=== PATIENT | female | born 1995 | race Two or more races ===

== ENCOUNTER 2022-03-26 08:43 | Emergency (ER) | payer MEDICAID, OTHER ==
[~2022-03-26] VITALS: Ht 160 cm; Wt 83.0 kg
[2022-03-26 09:54] LABS: Urine Bacteria NONE SEEN /hpf (None Seen); Urine Blood Negative /uL (Negative); Urine Mucus FEW (None Seen); Urine Specific Gravity 1.028 (1.001-1.035); Urine WBC 15 /hpf (0 - 5)
[2022-03-26 10:17] LABS: Basophils # (auto) 0.2 10 ^3/uL (0-0.2); Basophils % (auto) 3.7 % (0.0-2.0); Eosinophils # (auto) 0.1 10 ^3/uL (0-0.8); Eosinophils % (auto) 2.8 % (0.0-7.0); Hematocrit 41.3 % (36.0-46.0); Hemoglobin 14.5 g/dL (12.2-16.2); Lymphocytes # (auto) 1.8 10 ^3/uL (0.4-5.4); Lymphocytes % (auto) 33.7 % (10.0-50.0); Mean Corpuscular Hgb Conc. 35.1 g/dL (32.0-36.0); Mean Corpuscular Volume 91.4 fL (80.0-100.0); Monocytes # (auto) 0.2 10 ^3/uL (0-1.3); Monocytes % (auto) 3.9 % (0.0-12.0); Neutrophils % (auto) 55.9 % (37.0-80.0); Nucleated Red Blood Cells % 0.1 %; Red Blood Cells 4.52 10^6/uL (4.0-5.20); Red Cell Distribution Width 12.5 % (11.8-14.3); White Blood Cell 5.3 10^3/uL (4.4-10.8)
[2022-03-26 10:36] LABS: Albumin 3.6 g/dL (3.4-5.0); Calcium 8.6 mg/dL (8.5-10.1); Magnesium 2.4 mg/dL (1.6-2.6); Potassium 3.8 mmol/L (3.5-5.1)
[2022-03-26 10:40] LABS: BUN/Creatinine Ratio 16.7; Bilirubin, Total 0.3 mg/dL (0.2-1.0); Total Protein 7.1 g/dL (6.4-8.2)
[2022-03-26] MEDS ORDERED: predniSONE 20 MG TAB PO ONE (13:45)
[2022-03-26] MEDS ORDERED: PRED20TA2 PO (14:03)
[2022-03-26] MEDS ORDERED: VALA1TAB34 PO (14:03)
[2022-03-26 14:45] VITALS: BP 116/71
== END 2022-03-26 14:45 | disposition home or self-care (01) ==
LOC: ER 08:43
DX: G51.0 Bell's palsy (principal)
CPT/HCPCS: 36415; 70450; 80053; 81001; 81025; 83735; 85025; 93005; 99285; J7512

== ENCOUNTER 2023-10-10 17:44 | Emergency (ER) | payer MEDICAID ==
[~2023-10-10] VITALS: Ht 160 cm; Wt 77.2 kg
[~2023-10-10 17:44] MED LIST: PRED20TA2 PO; VALA1TAB34 PO
[2023-10-10 17:50] VITALS: BP 138/81; PULSE 104; RESP 16; O2SAT 97
== END 2023-10-11 01:30 | disposition left against medical advice (07) ==
LOC: EDBD 17:44 → ER 17:44
DX: M79.605 Pain in left leg (principal); Z53.21 Procedure and treatment not carried out due to patient leaving prior to being seen by health care provider; V89.2XXA Person injured in unspecified motor-vehicle accident, traffic, initial encounter; Y93.I9 Activity, other involving external motion; Y92.89 Other specified places as the place of occurrence of the external cause; Y99.8 Other external cause status

== ENCOUNTER 2025-02-17 11:56 | Inpatient (IN) | payer MEDICAID ==
[~2025-02-17] VITALS: Ht 162.6 cm; Wt 83.0 kg
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
[2025-02-17 12:33] LABS: Urine Bacteria None Seen /hpf (None Seen)
[2025-02-17 12:44] LABS: Basophils # (auto) 0 10 ^3/uL (0-0.2); Basophils % (auto) 0.5 % (0.0-2.0); Eosinophils # (auto) 0.1 10 ^3/uL (0-0.8); Eosinophils % (auto) 0.7 % (0.0-7.0); Hematocrit 46.3 % (36.0-46.0); Hemoglobin 15.4 g/dL (12.2-16.2); Lymphocytes # (auto) 1.2 10 ^3/uL (0.4-5.4); Lymphocytes % (auto) 14.6 % (10.0-50.0); Mean Corpuscular Hemoglobin 28.3 pg (28.0-32.0); Mean Corpuscular Hgb Conc. 33.4 g/dL (32.0-36.0); Mean Corpuscular Volume 84.8 fL (80.0-100.0); Monocytes # (auto) 0.3 10 ^3/uL (0-1.3); Neutrophils # (auto) 6.7 10 ^3/uL (1.6-8.6); Neutrophils % (auto) 80.2 % (37.0-80.0); Nucleated Red Blood Cells % 0.1 %; Platelet Count (auto) 223 10^3/uL (140-450); Red Blood Cells 5.45 10^6/uL (4.0-5.20); Red Cell Distribution Width 15.8 % (11.8-14.3); White Blood Cell 8.3 10^3/uL (4.4-10.8)
[2025-02-17 12:56] LABS: Urine Blood 1+ /uL (Negative); Urine Clarity Ex.Turbid (Clear); Urine Color Light-Orange (Yellow); Urine Mucus MODERATE (None Seen); Urine Protein, UAD 1+ (Negative); Urine Squamous Epithelial Cell MOD /hpf (<5); Urine Urobilinogen Normal (Negative); Urine WBC 62 /HPF (0-5); Urine WBC Clumps PRESENT /hpf (None Seen); Urine pH 5.5 (5.0-9.0)
[2025-02-17 13:03] LABS: Alanine Aminotransferase 23 U/L (7-40); Albumin 4.7 g/dL (3.2-4.8); Alkaline Phosphatase 73 U/L (46-116); Anion Gap 6 (5-15); Aspartate Aminotransferase 17 U/L (13-40); BUN/Creatinine Ratio 17.1 (10.0-20.0); Bilirubin, Total 0.5 mg/dL (0.2-1.0); Blood Urea Nitrogen 14 mg/dL (9-23); Calcium 9.8 mg/dL (8.7-10.4); Carbon Dioxide 27 mmol/L (20-31); Chloride 107 mmol/L (98-107); Glucose 99 mg/dL (74-106); Lipase 40 U/L (12-53); Potassium 4.4 mmol/L (3.5-5.1); Sodium 140 mmol/L (136-145); Total Protein 7.6 g/dL (5.7-8.2)
--- NOTE | 2025-02-17 13:40 | DVH ---
CT CT AB PEL WO CON-NO ORAL OR IV INDICATION: r flank pain : 29 old Female r flank pain EXAM DATE: 02/17/2025 12:52 PM COMPARISON: None RADIATION DOSE: CTDIvol: 8.76 mGy, DLP: 526.27 mGy*cm PROCEDURE: Helical CT images were obtained of the abdomen and pelvis without IV contrast Sagittal and coronal reconstructions are provided. ORAL CONTRAST: None. ADDITIONAL IMAGES / REFORMATS: None All C T scans at this medical facility are performed using dose modulation techniques as appropriate to a p erformed exam including the following: Automated exposure control was utilized; adjustment of the MA and/or KV according to patient size; and use of iterative reconstruction technique. FINDINGS: LUNG BASE: Normal. LIVER: Normal. GALLBLADDER AND BILIARY TREE: Cholecystectomy clips. No intra- or extrahepatic biliary ductal dilati on. PANCREAS: Normal. SPLEEN: Normal. BOWEL: Normal. Normal appendix. ADRENALS: Normal. KIDNEYS AND URETER: 4mm partially obstructive right kidney stone in the distal ureter with mild right hydro ureteronephrosis. BLADDER: Normal. REPRODUCTIVE ORGANS: An IUD is seen in the uterus. LYMPH NODES:No lymphadenopathy. PERITONEUM: No ascites or free air. No other fluid collection. VESSELS: Scattered atherosclerotic calcifications are noted. RETROPERITONEUM: Normal. ABDOMINAL WALL: Post surgical scarring is seen in the anterior abdominal wall. BONES: Scattered osseous degenerative changes are noted. IMPRESSION: 4mm partially obstructive right kidney stone in the distal ureter with mild right hydro ureteronephro sis.
[2025-02-17] MEDS: LACTATED RINGER'S 1,000 ML IV ONE (15:10)
[2025-02-17] MEDS: SODIUM CHLORIDE 0.9% 1,000 ML IV ONE (15:18)
[2025-02-17] MEDS ORDERED: DOCUSATE SOD 100 MG CAP PO PRN (15:45)
--- NOTE | 2025-02-17 15:55 | DVHHP2 ---
Admitting Diagnosis: Flank pain History of Present Illness 29 year old female presents to the ED with chief complaint of flank pain. Patient reports that she has been experiencing right sided flank pain since this morning, visiting urgent care today. Patient relays that she was advised to come to the ED for a CT scan of her abdomen. Per referral note, patient has positive blood in urine test, given 30mg of Toradol IM prior to ED arrival. Patient states she has had some difficulty urinating recently, but still feels like she needs to go. Patient denies any dysuria, hematuria, N/V/D, abdominal pain, or fever. PAST MEDICAL HISTORY: Gallstones Surgical History: Denies all surgeries WET PROCESS HEAD MILLER History: No Pertinent WET PROCESS HEAD MILLER History Family History Family History: Reviewed,noncontributory to illness Social History Smoker: Non-Smoker Alcohol: Denies ETOH Use Drugs: Denies Drug Use Lives In: Home Allergies: Coded Allergies: NO KNOWN ALLERGIES (Unverified , 10/10/23) Home Meds Active Scripts Prednisone (Prednisone) 20 Mg Tab, 40 MG PO DAILY for 5 Days, #10 MG Prov:SHADI ASTORGA DO 03/26/22 Valacyclovir HCl (Valacyclovir HCl) 1 Gm Tab, 1 GM PO TID for 7 Days, #21 TAB Prov:SHADI ASTORGA DO 03/26/22 Current Medications Current Medications Medications (Trade) Dose Ordered Sig/Nickie Route PRN Reason Start Time Stop Time Status Last Admin Tamsulosin HCl (Flomax) 0.4 mg DAILY PO 02/17/25 15:45 UNV Docusate Sodium (Colace Capsule) 100 mg BIDPRN PRN PO FOR CONSTIPATION 02/17/25 15:45 UNV Acetaminophen (Tylenol Tablet) 650 mg Q6HP PRN PO PAIN SCALE 1-3 OR TEMP>100.4 02/17/25 15:45 UNV Acetaminophen/ Hydrocodone Bitart ([place] 5/325MG Tab) 1 tab Q4HP PRN PO MODERATE PAIN (4-6 PAIN SCALE) 02/17/25 15:45 UNV Hydromorphone HCl (Dilaudid Injection) 0.5 mg Q4HP PRN IV SEVERE PAIN (7-10 PAIN SCALE) 02/17/25 15:45 UNV Ondansetron HCl (Zofran) 4 mg Q4HP PRN IV NAUSEA / VOMITING 02/17/25 15:45 UNV Ceftriaxone Sodium 50 ml @ 100 mls/hr DAILY IV 02/17/25 16:00 UNV Vital Signs Vital Signs Date Time Temp Pulse Resp B/P (MAP) Pulse Ox O2 Delivery O2 Flow Rate FiO2 02/17/25 12:12 99.0 77 18 127/81 (96) 99 99.0 Physical Exam Generally-29 years old woman, well nourished well developed. Mild distress HEENT-atraumatic, normocephalic Heart-regular rate and rhythm Lungs clear to auscultate bilaterally Abdomen soft nontender nondistended Musculoskeletal-no edema cyanosis Neuro-AO x3, no focal deficits Results Labs Test 02/17/25 12:33 02/17/25 12:18 Range/Units Urine Color Light-orange Yellow Urine Clarity Ex.turbid Clear Urine pH 5.5 5.0-9.0 Urine Specific [place] 1.040 H 1.001-1.035 Urine Protein 1+ H Negative Urine Ketones Negative Negative Urine Blood 1+ H Negative /uL Urine Nitrite Negative Negative Urine Bilirubin Negative Negative Urine Urobilinogen Normal Negative mg/dL Urine Leukocyte Esterase 1+ Negative /uL Urine RBC 10 0 - 4 /hpf Urine WBC Clumps Present None Seen /hpf Urine Microscopic WBC 62 H 0-5 /HPF Urine Squamous Epithelial Cells Mod <5 /hpf Urine Bacteria None seen None Seen /hpf Urine Mucus Moderate None Seen Urine Glucose Normal Normal mg/dL Urine Test Negative Negative White Blood Count 8.3 4.4-10.8 10^3/uL Red Blood Count 5.45 H 4.0-5.20 10^6/uL Hemoglobin 15.4 12.2-16.2 g/dL Hematocrit 46.3 H 36.0-46.0 % Mean Corpuscular Volume 84.8 80.0-100.0 fL Mean Corpuscular Hemoglobin 28.3 28.0-32.0 pg Mean Corpuscular Hemoglobin Concent 33.4 32.0-36.0 g/dL Red Cell Distribution Width 15.8 H 11.8-14.3 % Platelet Count 223 140-450 10^3/uL Mean Platelet Volume 9.5 6.9-10.8 fL Neutrophils (%) (Auto) 80.2 H 37.0-80.0 % Lymphocytes (%) (Auto) 14.6 10.0-50.0 % Monocytes (%) (Auto) 4.0 0.0-12.0 % Eosinophils (%) (Auto) 0.7 0.0-7.0 % Basophils (%) (Auto) 0.5 0.0-2.0 % Neutrophils # (Auto) 6.7 1.6-8.6 10 ^3/uL Lymphocytes # (Auto) 1.2 0.4-5.4 10 ^3/uL Monocytes # (Auto) 0.3 0-1.3 10 ^3/uL Eosinophils # (Auto) 0.1 0-0.8 10 ^3/uL Basophils # (Auto) 0 0-0.2 10 ^3/uL Nucleated Red Blood Cells 0.1 % Sodium Level 140 136-145 mmol/L Potassium Level 4.4 3.5-5.1 mmol/L Chloride Level 107 98-107 mmol/L Carbon Dioxide Level 27 20-31 mmol/L Anion Gap 6 5-15 Blood Urea Nitrogen 14 9-23 mg/dL Creatinine 0.82 0.550-1.02 mg/dL Glomerular Filtration Rate Calc 98 >90 mL/min BUN/Creatinine Ratio 17.1 10.0-20.0 Serum Glucose 99 74-106 mg/dL Calcium Level 9.8 8.7-10.4 mg/dL Total Bilirubin 0.5 0.2-1.0 mg/dL Aspartate Amino Transferase (AST) 17 13-40 U/L Alanine Aminotransferase (ALT) 23 7-40 U/L Alkaline Phosphatase 73 46-116 U/L Total Protein 7.6 5.7-8.2 g/dL Albumin 4.7 3.2-4.8 g/dL Lipase 40 12-53 U/L Primary Diagnosis Right partial obstructive renal calculus with right hydronephrosis Plan CT abdomen and pelvis shows right renal calculus partial obstructive, right hydronephrosis Insert Mauro Pain control Antiemetic LR at 125 cc an hours Tamsulosin Urology consult Regular diet NPO after midnight for possible procedure if does not resolve Check INR Full code SCD for DVT prophylaxis No GI prophylaxis needed Plan discussed with: Patient Problems List: (1) Hydronephrosis, right (2) Right ureteral calculus Status: Acute (3) Intractable pain Status: Acute Date of Service: Feb 17, 2025 Billing Provider: NATHANIEL KYLE MD Common Visit Codes: [id number] INP/OBS CARE (MOD) NATHANIEL KYLE MD Feb 17, 2025 15:55
[2025-02-17 16:17] VITALS: PULSE 74; RESP 16; O2SAT 97
[2025-02-17 16:40] LABS: INR 1.01 (0.9-1.15); Prothrombin Time 10.7 sec (9.3-11.8)
[2025-02-17] MEDS: fentaNYL CITRATE 100 MCG/2 ML VL IV ONE ×2 (16:55→17:10)
[2025-02-17] MEDS: TAMSULOSIN HYDROCHLORIDE 0.4 MG CAP PO SCH (17:02)
[2025-02-17] MEDS: cefTRIAXone 1GM/50ML D5W 50 ML IV SCH (17:02)
[2025-02-17 17:26] VITALS: BP 125/76; PULSE 63; RESP 18; TEMP 98.2; O2SAT 98
[2025-02-17] MEDS ORDERED: IBUP-1455 PO (17:42)
[2025-02-17] MEDS: HYDROmorphone HCL 2 MG/ML VL/or syr IV PRN (18:17)
[2025-02-17 20:00] VITALS: PULSE 78; RESP 18; O2SAT 98
[2025-02-17] MEDS: ONDANSETRON HCL 4 MG/2 ML VIAL IV PRN (20:31)
[2025-02-17] MEDS: HYDROcodone-ACET 5/325MG TAB PO PRN (20:37)
[2025-02-17 21:00] VITALS: BP 121/85; PULSE 78; RESP 18; TEMP 98; O2SAT 98
[2025-02-18] VITALS (8 sets, daily range): BP systolic 99–107; BP diastolic 53–70; PULSE 68–86; RESP 17–20; TEMP 98.5–99.4; O2SAT 94–97
[2025-02-18 07:02] LABS: Basophils # (auto) 0 10 ^3/uL (0-0.2); Basophils % (auto) 0.5 % (0.0-2.0); Eosinophils # (auto) 0.1 10 ^3/uL (0-0.8); Eosinophils % (auto) 1.4 % (0.0-7.0); Hematocrit 40.9 % (36.0-46.0); Hemoglobin 13.7 g/dL (12.2-16.2); Lymphocytes # (auto) 1.7 10 ^3/uL (0.4-5.4); Lymphocytes % (auto) 21.4 % (10.0-50.0); Mean Corpuscular Hemoglobin 28.2 pg (28.0-32.0); Mean Corpuscular Hgb Conc. 33.5 g/dL (32.0-36.0); Mean Corpuscular Volume 84.3 fL (80.0-100.0); Monocytes # (auto) 0.6 10 ^3/uL (0-1.3); Monocytes % (auto) 7.9 % (0.0-12.0); Neutrophils # (auto) 5.4 10 ^3/uL (1.6-8.6); Neutrophils % (auto) 68.8 % (37.0-80.0); Nucleated Red Blood Cells % 0.1 %; Platelet Count (auto) 177 10^3/uL (140-450); Red Blood Cells 4.85 10^6/uL (4.0-5.20); Red Cell Distribution Width 15.7 % (11.8-14.3); White Blood Cell 7.9 10^3/uL (4.4-10.8)
[2025-02-18 07:14] LABS: Alanine Aminotransferase 16 U/L (7-40); Albumin 3.9 g/dL (3.2-4.8); Alkaline Phosphatase 67 U/L (46-116); Anion Gap 9 (5-15); Aspartate Aminotransferase 8 U/L (13-40); BUN/Creatinine Ratio 11.2 (10.0-20.0); Bilirubin, Total 0.7 mg/dL (0.2-1.0); Blood Urea Nitrogen 12 mg/dL (9-23); Calcium 8.8 mg/dL (8.7-10.4); Carbon Dioxide 25 mmol/L (20-31); Chloride 105 mmol/L (98-107); Glucose 101 mg/dL (74-106); Potassium 3.8 mmol/L (3.5-5.1); Sodium 139 mmol/L (136-145); Total Protein 6.1 g/dL (5.7-8.2)
[2025-02-18] MEDS: SODIUM CHLORIDE 0.9% 1,000 ML IV SCH (08:45)
[2025-02-18 08:59] LABS: LDL Cholesterol 103 mg/dL (< 100); Triglycerides 162 mg/dL (< 150)
[2025-02-18 09:00] LABS: Cholesterol 154 mg/dL (< 200)
[2025-02-18 09:03] LABS: HDL Cholesterol 27 mg/dL (40-59)
[2025-02-18] MEDS: ACETAMINOPHEN 325 MG TAB PO PRN (14:54)
--- NOTE | 2025-02-18 16:26 | DVHPNRES ---
Progress Note Date Seen: Feb 18, 2025 Resident Creating Document: MAGED GALE RESIDENT Medical Necessity Reason Pt with a Central, PICC or Fol: No Subjective Review of Systems Patient seen and examined at bedside Complaining of mild abdominal pain, Patient is NPO No any other new complaints. ROS Eyes: No Pain, No Vision change, No Conjunctivae inflammation, No Eyelid inflammation, No Other, No Redness ENT: No Ear pain, No Ear discharge, No Nose pain, No Nose discharge, No Nose congestion, No Mouth pain, No Mouth swelling, No Throat pain, No Throat swelling, No Other Cardiovascular: No Chest Pain, No Palpitations, No Orthopnea, No Paroxysmal Noc. Dyspnea, No Edema, No Lt Headedness, No Other Respiratory: No Cough, No Dry, No Shortness of breath, No SOB with exertion, No Wheezing, No Hemoptysis, No Pleuritic Pain, No Sputum, No Other Gastrointestinal: No Nausea, No Vomiting, Abdominal Pain, No Diarrhea, No Constipation, No Melena, No Hematochezia, No Other Genitourinary: No Dysuria, No Frequency, No Incontinence, No Hematuria, No Retention, No Other Musculoskeletal: No other, No neck pain, No shoulder pain, No arm pain, No back pain, No hand pain, No leg pain, No foot pain Skin: No Rash, No Lesions, No Jaundice, No Bruising, No Other Objective vital signs Vital Sign Date Time Temp Pulse Resp B/P (MAP) Pulse Ox O2 Delivery O2 Flow Rate FiO2 02/18/25 13:00 98.5 86 17 99/53 (68) 95 98.5 02/18/25 08:00 Room Air* 0 21 Total Intake and Output 02/17/25 02/17/25 02/18/25 15:00 23:00 07:00 Intake Total 50 ml 3505 ml Balance 50 ml 3505 ml medications Current Medications Medications Dose Ordered Sig/Nickie Route Start Time Stop Time Status Last Admin Dose Admin Tamsulosin HCl 0.4 mg DAILY PO 02/17/25 15:45 02/18/25 09:29 0.4 MG Docusate Sodium 100 mg BIDPRN PRN PO 02/17/25 15:45 Acetaminophen 650 mg Q6HP PRN PO 02/17/25 15:45 02/18/25 14:54 650 MG Acetaminophen/ Hydrocodone Bitart 1 tab Q4HP PRN PO 02/17/25 15:45 02/18/25 09:29 1 TAB Hydromorphone HCl 0.5 mg Q4HP PRN IV 02/17/25 15:45 02/18/25 04:40 0.5 MG Ondansetron HCl 4 mg Q4HP PRN IV 02/17/25 15:45 02/17/25 20:31 4 MG Ceftriaxone Sodium 50 ml @ 100 mls/hr DAILY IV 02/17/25 16:00 02/18/25 09:29 100 MLS/HR Sodium Chloride 1,000 ml @ 125 mls/hr Q8H IV 02/18/25 08:45 02/18/25 08:45 125 MLS/HR Examination General Appearance: Cooperative. Well developed. Well nourished. NAD Head Exam: Normal inspection Neck Exam: Normal inspection. Non-tender. Normal alignment Pulmonary/Respiratory: Chest non-tender. Clear bilateral breath sounds Cardiovascular/Chest: Regular rate and rhythm. No murmurs. No JVD. Peripheral Pulses: 2+ Radial (R). 2+ Radial (L). 2+ Pedal (R). 2+ Pedal (L) Abdominal Exam: Normal bowel sounds. Soft. Nontender. No hepatosplenomegaly. No masses Ankle Exam: Negative ankle edema Lower extremities: Negative lower extremity edema Neuro/Mental Status: A&O x4. Coherent Thoughts/Psych: Normal thought pattern. Appropriate mood and affect. Good judgement and insight Appearance: In no acute distress Skin Exam: Normal inspection. Normal color. Warm. Dry laboratory and microbiology Laboratory Tests 02/18/25 06:07 Test 02/18/25 06:07 Range/Units Serum Glucose 101 74-106 mg/dL Microbiology Date/Time Source Procedure Growth Status 02/17/25 12:33 Voided Urine Urine Culture - Preliminary Resulted Labs and/or images reviewed: Labs reviewed by me, Image(s) reviewed by me Problem List/Assessment/Plan Problem List/Assessment/Plan Right partial obstructive renal calculus with right hydronephrosis -CT abdomen and pelvis:4mm partially obstructive right kidney stone in the distal ureter with mild right hydro ureteronephrosis. -IV fluid LR at 125 cc/hour -tamsulosin 0.5 mg p.o. daily -urologic consultation -NPO -IV ceftriaxone -pain management Intractable abdominal pain likely due to above -continue current management of renal calculus UTI -IV ceftriaxone -pending urine culture Obesity BMI 31.5 kg/m2 -counseled on lifestyle modification including regular exercise, healthy diet options. PUD prophylaxis not indicated DVT prophylaxis SCD Goals of care discussed for 20 minutes, full code status. Plan discussed with DR Sanchez Plan discussed with: Patient, Other (RN) My Orders My Orders Orders - MAGED GALE RESIDENT Procedure Category Date Status Time Sodium Chloride 0.9% PHA 02/18/25 In Process 08:45 Addendum Addendum Addendum I was physically present for the [place] portions of the service provided to patient by THE RESIDENT. I have reviewed the documentation, discussed the case with resident and agree with the resident's documentation except as noted. Also the patient's clinical case was discussed with the patient's nurse. This medical document was created using an electronic medical record system with computerized dictation system. Although this document has been carefully reviewed, there might still be some phonetic and typographical errors. These areas are purely typographical due to imperfections of the software programs, and do not reflect any compromise in the patient's medical care. Late signature. Date of Service: Feb 18, 2025 Billing Provider: SHANNAN SANCHEZ MD Common Visit Codes: [id number] INP/OBS CARE(HIGH) Secondary Visit Codes: [id number] CARE PLAN 30 MINUTES (20 minutes) MAGED GALE RESIDENT Feb 18, 2025 16:26 SHANNAN SANCHEZ MD Feb 20, 2025 06:14
[2025-02-19] VITALS (10 sets, daily range): BP systolic 98–116; BP diastolic 56–72; PULSE 63–98; RESP 11–20; TEMP 97.7–99; O2SAT 93–100
[2025-02-19 06:20] LABS: Basophils # (auto) 0 10 ^3/uL (0-0.2); Basophils % (auto) 0.5 % (0.0-2.0); Eosinophils # (auto) 0.1 10 ^3/uL (0-0.8); Eosinophils % (auto) 1.9 % (0.0-7.0); Hematocrit 37.5 % (36.0-46.0); Hemoglobin 12.9 g/dL (12.2-16.2); Lymphocytes # (auto) 1.6 10 ^3/uL (0.4-5.4); Lymphocytes % (auto) 23.9 % (10.0-50.0); Mean Corpuscular Hemoglobin 28.8 pg (28.0-32.0); Mean Corpuscular Hgb Conc. 34.3 g/dL (32.0-36.0); Mean Corpuscular Volume 83.8 fL (80.0-100.0); Monocytes # (auto) 0.4 10 ^3/uL (0-1.3); Monocytes % (auto) 6.3 % (0.0-12.0); Neutrophils # (auto) 4.4 10 ^3/uL (1.6-8.6); Neutrophils % (auto) 67.4 % (37.0-80.0); Platelet Count (auto) 171 10^3/uL (140-450); Red Blood Cells 4.47 10^6/uL (4.0-5.20); Red Cell Distribution Width 15.2 % (11.8-14.3); White Blood Cell 6.6 10^3/uL (4.4-10.8)
[2025-02-19 06:33] LABS: Alanine Aminotransferase 17 U/L (7-40); Albumin 3.8 g/dL (3.2-4.8); Alkaline Phosphatase 68 U/L (46-116); Anion Gap 9 (5-15); Aspartate Aminotransferase 13 U/L (13-40); BUN/Creatinine Ratio 9.3 (10.0-20.0); Bilirubin, Total 0.9 mg/dL (0.2-1.0); Blood Urea Nitrogen 10 mg/dL (9-23); Carbon Dioxide 24 mmol/L (20-31); Chloride 105 mmol/L (98-107); Glucose 81 mg/dL (74-106); Potassium 3.7 mmol/L (3.5-5.1); Sodium 138 mmol/L (136-145)
[2025-02-19 06:35] LABS: Calcium 8.7 mg/dL (8.7-10.4)
--- NOTE | 2025-02-19 10:32 | DVHINCON2 ---
Date of service: Feb 19, 2025 Referring Physician Hospitalist Reason for Consultation mild right hydronephrosis 4 mm right distal ureteral stone History of Present Illness 29 year old female admitted to [facility] with chief complaint of flank pain. Patient reports no pain since admit. CT Scan reported 4 mm right distal ureteral stone with minimal right hydronephrosis. Primary Care Provider: JOSELUISIES Reviewed notes: Nurses Notes, Medications, Allergies Allergies: Coded Allergies: NO KNOWN ALLERGIES (Unverified , 10/10/23) Home Meds Active Scripts Prednisone (Prednisone) 20 Mg Tab, 40 MG PO DAILY for 5 Days, #10 MG Prov:SHADI ASTORGA DO 03/26/22 Valacyclovir HCl (Valacyclovir HCl) 1 Gm Tab, 1 GM PO TID for 7 Days, #21 TAB Prov:SHADI ASTORGA DO 03/26/22 Information Source: Patient Mode of Arrival: Ambulatory Severity: Moderate Timing: Hours Duration: Since onset Prehospital treatment: None Onset: Spontaneous Symptoms: None History of: None Location: (R) Flank Modifying factors: None associated signs and symptoms: Flank Pain Past Medical History Gallstones Past Surgical History Denies all surgeries EDGE SANDER History: No Pertinent EDGE SANDER History Family History: Patient reports no known family medical history. Allergies: Coded Allergies: NO KNOWN ALLERGIES (Unverified , 10/10/23) Home Meds Active Scripts Prednisone (Prednisone) 20 Mg Tab, 40 MG PO DAILY for 5 Days, #10 MG Prov:SHADI ASTORGA DO 03/26/22 Valacyclovir HCl (Valacyclovir HCl) 1 Gm Tab, 1 GM PO TID for 7 Days, #21 TAB Prov:SHADI ASTORGA DO 03/26/22 Reported Medications Ibuprofen Micronized (Ibuprofen) 800 Mg Tab, 1 TAB PO TID 02/17/25 Review of Systems Constitutional: denies: chills, diaphoresis, fatigue, fever, malaise, sweats, weakness, others EENTM: denies: blurred vision, double vision, ear bleeding, ear discharge, ear drainage, ear pain, ear ringing, eye pain, eye redness, hearing loss, mouth pain, mouth swelling, nasal discharge, nose bleeding, nose congestion, nose pain, photophobia, tearing, throat pain, throat swelling, voice changes, others Respiratory: denies: cough, hemoptysis, orthopnea, SOB at rest, shortness of breath, SOB with excertion, stridor, wheezing, others Cardiovascular: denies: chest pain, dizzy spells, diaphoresis, Dyspnea on exertion, edema, irregular heart beat, left arm pain, lightheadedness, palpitations, PND, syncope, others Gastrointestinal: denies: abdomen distended, abdominal pain, blood streaked bowels, constipated, diarrhea, dysphagia, difficulty swallowing, hematemesis, melena, nausea, poor appetite, poor fluid intake, rectal bleeding, rectal pain, vomiting, others Genitourinary: reports: flank pain, others (Difficulty urinating); denies: abnormal vagina bleeding, burning, dyspareunia, dysuria, frequency, hematuria, incontinence, pain, , vagina discharge, urgency Neurological: denies: dizziness, fainting, headache, left sided numbness, left sided weakness, numbness, paresthesia, pre-existing deficit, right sided numbness, right sided weakness, seizure, speech problems, tingling, tremors, weakness, others Musculoskeletal: denies: back pain, gout, joint pain, joint swelling, muscle pain, muscle stiffness, neck pain, others Integumetry: denies: bruises, change in color, change in hair/nails, dryness, laceration, lesions, lumps, rash, wounds, others Allergic/Immunocompromised: denies: Difficulty Healing, Frequent Infections, Hives, Itching, others Hematologic/Lymphatic: denies: anemia, blood clots, easy bleeding, easy bruising, swollen glands, others Endocrine: denies: excessive hunger, excessive sweating, excessive thirst, excessive urination, flushing, intolerance to cold, intolerance to heat, unexp lained weight gain, unexplained weight loss, others Psychiatric: denies: anxiety, bipolar disorder, depression, hopeless, panic disorder, schizophrenia, sleepless, suicidal, others All Other Systems: Reviewed and Negative Vital Signs Vital Signs Date Time Temp Pulse Resp B/P (MAP) Pulse Ox O2 Delivery O2 Flow Rate FiO2 02/19/25 09:00 97.7 76 17 98/56 (70) 95 97.7 02/18/25 20:00 Room Air* 0 21 Physical Exam NAD Labs/Diagnostic Data Labs Test 02/19/25 05:25 02/18/25 06:07 02/17/25 12:33 02/17/25 12:18 Range/Units White Blood Count 6.6 4.4-10.8 10^3/uL Red Blood Count 4.47 4.0-5.20 10^6/uL Hemoglobin 12.9 12.2-16.2 g/dL Hematocrit 37.5 36.0-46.0 % Mean Corpuscular Volume 83.8 80.0-100.0 fL Mean Corpuscular Hemoglobin 28.8 28.0-32.0 pg Mean Corpuscular Hemoglobin Concent 34.3 32.0-36.0 g/dL Red Cell Distribution Width 15.2 H 11.8-14.3 % Platelet Count 171 140-450 10^3/uL Mean Platelet Volume 9.2 6.9-10.8 fL Neutrophils (%) (Auto) 67.4 37.0-80.0 % Lymphocytes (%) (Auto) 23.9 10.0-50.0 % Monocytes (%) (Auto) 6.3 0.0-12.0 % Eosinophils (%) (Auto) 1.9 0.0-7.0 % Basophils (%) (Auto) 0.5 0.0-2.0 % Neutrophils # (Auto) 4.4 1.6-8.6 10 ^3/uL Lymphocytes # (Auto) 1.6 0.4-5.4 10 ^3/uL Monocytes # (Auto) 0.4 0-1.3 10 ^3/uL Eosinophils # (Auto) 0.1 0-0.8 10 ^3/uL Basophils # (Auto) 0 0-0.2 10 ^3/uL Nucleated Red Blood Cells 0.0 % Sodium Level 138 136-145 mmol/L Potassium Level 3.7 3.5-5.1 mmol/L Chloride Level 105 98-107 mmol/L Carbon Dioxide Level 24 20-31 mmol/L Anion Gap 9 5-15 Blood Urea Nitrogen 10 9-23 mg/dL Creatinine 1.08 H 0.550-1.02 mg/dL Glomerular Filtration Rate Calc 70 >90 mL/min BUN/Creatinine Ratio 9.3 L 10.0-20.0 Serum Glucose 81 74-106 mg/dL Calcium Level 8.7 8.7-10.4 mg/dL Total Bilirubin 0.9 0.2-1.0 mg/dL Aspartate Amino Transferase (AST) 13 13-40 U/L Alanine Aminotransferase (ALT) 17 7-40 U/L Alkaline Phosphatase 68 46-116 U/L Total Protein 6.0 5.7-8.2 g/dL Albumin 3.8 3.2-4.8 g/dL Hemoglobin A1c 4.9 <5.7 % A1C Triglycerides Level 162 H < 150 mg/dL Cholesterol Level 154 < 200 mg/dL LDL Cholesterol 103 H < 100 mg/dL HDL Cholesterol 27 L 40-59 mg/dL Thyroid Stimulating Hormone (TSH) 1.88 0.55-4.78 uIU/mL Urine Color Light-orange Yellow Urine Clarity Ex.turbid Clear Urine pH 5.5 5.0-9.0 Urine Specific [place] 1.040 H 1.001-1.035 Urine Protein 1+ H Negative Urine Ketones Negative Negative Urine Blood 1+ H Negative /uL Urine Nitrite Negative Negative Urine Bilirubin Negative Negative Urine Urobilinogen Normal Negative mg/dL Urine Leukocyte Esterase 1+ Negative /uL Urine RBC 10 0 - 4 /hpf Urine WBC Clumps Present None Seen /hpf Urine Microscopic WBC 62 H 0-5 /HPF Urine Squamous Epithelial Cells Mod <5 /hpf Urine Bacteria None seen None Seen /hpf Urine Mucus Moderate None Seen Urine Glucose Normal Normal mg/dL Urine Test Negative Negative Prothrombin Time 10.7 9.3-11.8 sec Prothrombin Time INR 1.01 0.9-1.15 Lipase 40 12-53 U/L Microbiology Date/Time Source Procedure Growth Status 02/17/25 12:33 Voided Urine Urine Culture - Preliminary Resulted PATIENT: DONNA WONG ACCT: [id number] UNIT: [id number] : 1995 LOC: ER ROOM / BED: / AGE / SEX: 29 / F ADM STATUS: REG ER SERVICE 1211 ORDERING PHYSICIAN: ED PADILLA MD PROCEDURE(s): ABPL - CT AB PEL WO CON-NO ORAL OR IV REASON: r flank pain ORDER NUMBER(s): [id number], ACCESSION NUMBER(s): [id number] CT CT AB PEL WO CON-NO ORAL OR IV INDICATION: r flank pain : 29 old Female r flank pain EXAM DATE: 02/17/2025 12:52 PM COMPARISON: None RADIATION DOSE: CTDIvol: 8.76 mGy, DLP: 526.27 mGy*cm PROCEDURE: Helical CT images were obtained of the abdomen and pelvis without IV contrast Sagittal and coronal reconstructions are provided. ORAL CONTRAST: None. ADDITIONAL IMAGES / REFORMATS: None All CT scans at this medical facility are performed using dose modulation techniques as appropriate to a performed exam including the following: Automated exposure control was utilized; adjustment of the MA and/or KV according to patient size; and use of iterative reconstruction technique. FINDINGS: LUNG BASE: Normal. LIVER: Normal. GALLBLADDER AND BILIARY TREE: Cholecystectomy clips. No intra- or extrahepatic biliary ductal dilation. PANCREAS: Normal. SPLEEN: Normal. BOWEL: Normal. Normal appendix. ADRENALS: Normal. KIDNEYS AND URETER: 4mm partially obstructive right kidney stone in the distal ureter with mild right hydro ureteronephrosis. BLADDER: Normal. REPRODUCTIVE ORGANS: An IUD is seen in the uterus. LYMPH NODES:No lymphadenopathy. PERITONEUM: No ascites or free air. No other fluid collection. VESSELS: Scattered atherosclerotic calcifications are noted. RETROPERITONEUM: Normal. ABDOMINAL WALL: Post surgical scarring is seen in the anterior abdominal wall. BONES: Scattered osseous degenerative changes are noted. IMPRESSION: 4mm partially obstructive right kidney stone in the distal ureter with mild right hydro ureteronephrosis. ATED BY: RANDOLPH VARGHESE MD DICTATED DATE/TIME: 02/17/251336 SIGNED BY: RANDOLPH VARGHESE MD SIGNED DATE/TIME: 02/17/251336 CC: Assessment 4 mm right ureteral stone with mild right hydronephrosis. Normal labs and resolved flank pain. Plan/Recommendation Expulsive measures Left URSLL TBA Plan discussed with: Patient, Other GENE KYLE MD Feb 19, 2025 10:32
--- NOTE | 2025-02-19 14:41 | DVHPNRES ---
Progress Note Date Seen: Feb 19, 2025 Resident Creating Document: MAGED GALE RESIDENT Medical Necessity Reason Pt with a Central, PICC or Fol: No Subjective Review of Systems Patient seen and examined at bedside plan for shock wave lithotripsy Complaining of mild abdominal pain, Patient is NPO No any other new complaints. ROS Eyes: No Pain, No Vision change, No Conjunctivae inflammation, No Eyelid inflammation, No Other, No Redness ENT: No Ear pain, No Ear discharge, No Nose pain, No Nose discharge, No Nose congestion, No Mouth pain, No Mouth swelling, No Throat pain, No Throat swelling, No Other Cardiovascular: No Chest Pain, No Palpitations, No Orthopnea, No Paroxysmal Noc. Dyspnea, No Edema, No Lt Headedness, No Other Respiratory: No Cough, No Dry, No Shortness of breath, No SOB with exertion, No Wheezing, No Hemoptysis, No Pleuritic Pain, No Sputum, No Other Gastrointestinal: No Nausea, No Vomiting, Abdominal Pain, No Diarrhea, No Constipation, No Melena, No Hematochezia, No Other Genitourinary: No Dysuria, No Frequency, No Incontinence, No Hematuria, No Retention, No Other Musculoskeletal: No other, No neck pain, No shoulder pain, No arm pain, No back pain, No hand pain, No leg pain, No foot pain Skin: No Rash, No Lesions, No Jaundice, No Bruising, No Other Objective vital signs Vital Sign Date Time Temp Pulse Resp B/P (MAP) Pulse Ox O2 Delivery O2 Flow Rate FiO2 02/19/25 13:00 98.8 83 19 111/67 (82) 93 98.8 02/19/25 08:00 Room Air* 0 21 Total Intake and Output 02/18/25 02/18/25 02/19/25 15:00 23:00 07:00 Intake Total 50 ml 0 ml 0 ml Output Total 950 ml Balance 50 ml 0 ml -950 ml medications Current Medications Medications Dose Ordered Sig/Nickie Route Start Time Stop Time Status Last Admin Dose Admin Tamsulosin HCl 0.4 mg DAILY PO 02/17/25 15:45 02/19/25 09:26 0.4 MG Docusate Sodium 100 mg BIDPRN PRN PO 02/17/25 15:45 Acetaminophen 650 mg Q6HP PRN PO 02/17/25 15:45 02/18/25 14:54 650 MG Acetaminophen/ Hydrocodone Bitart 1 tab Q4HP PRN PO 02/17/25 15:45 02/19/25 05:15 1 TAB Hydromorphone HCl 0.5 mg Q4HP PRN IV 02/17/25 15:45 02/18/25 04:40 0.5 MG Ondansetron HCl 4 mg Q4HP PRN IV 02/17/25 15:45 02/17/25 20:31 4 MG Ceftriaxone Sodium 50 ml @ 100 mls/hr DAILY IV 02/17/25 16:00 02/19/25 09:26 100 MLS/HR Sodium Chloride 1,000 ml @ 125 mls/hr Q8H IV 02/18/25 08:45 02/19/25 09:26 125 MLS/HR Examination General Appearance: Cooperative. Well developed. Well nourished. NAD Head Exam: Normal inspection Neck Exam: Normal inspection. Non-tender. Normal alignment Pulmonary/Respiratory: Chest non-tender. Clear bilateral breath sounds Cardiovascular/Chest: Regular rate and rhythm. No murmurs. No JVD. Peripheral Pulses: 2+ Radial (R). 2+ Radial (L). 2+ Pedal (R). 2+ Pedal (L) Abdominal Exam: Normal bowel sounds. Soft. Nontender. No hepatosplenomegaly. No masses Ankle Exam: Negative ankle edema Lower extremities: Negative lower extremity edema Neuro/Mental Status: A&O x4. Coherent Thoughts/Psych: Normal thought pattern. Appropriate mood and affect. Good judgement and insight Appearance: In no acute distress Skin Exam: Normal inspection. Normal color. Warm. Dry laboratory and microbiology Laboratory Tests 02/19/25 05:25 Test 02/19/25 05:25 Range/Units Serum Glucose 81 74-106 mg/dL Microbiology Date/Time Source Procedure Growth Status 02/17/25 12:33 Voided Urine Urine Culture - Preliminary Resulted Labs and/or images reviewed: Labs reviewed by me, Image(s) reviewed by me Problem List/Assessment/Plan Problem List/Assessment/Plan Right partial obstructive renal calculus with right hydronephrosis -CT abdomen and pelvis:4mm partially obstructive right kidney stone in the distal ureter with mild right hydro ureteronephrosis. -IV fluid LR at 125 cc/hour -tamsulosin 0.5 mg p.o. daily -urologic consultation: plan for shock wave lithotripsy -IV ceftriaxone -pain management Intractable abdominal pain likely due to above -continue current management of renal calculus UTI -IV ceftriaxone -pending urine culture Obesity BMI 31.5 kg/m2 -counseled on lifestyle modification including regular exercise, healthy diet options. PUD prophylaxis not indicated DVT prophylaxis SCD Plan discussed with DR Sanchez Plan discussed with: Patient, Other (RN) Addendum Addendum Addendum I was physically present for the [place] portions of the service provided to patient by THE RESIDENT. I have reviewed the documentation, discussed the case with resident and agree with the resident's documentation except as noted. Also the patient's clinical case was discussed with the patient's nurse. This medical document was created using an electronic medical record system with computerized dictation system. Although this document has been carefully reviewed, there might still be some phonetic and typographical errors. These areas are purely typographical due to imperfections of the software programs, and do not reflect any compromise in the patient's medical care. Late signature. Date of Service: Feb 19, 2025 Billing Provider: SHANNAN SANCHEZ MD Common Visit Codes: 69249-XSHWEOANOS INP/OBS CARE(HIGH) MAGED GALE RESIDENT Feb 19, 2025 14:41 SHANNAN SANCHEZ MD Feb 20, 2025 06:16
[2025-02-19] MEDS ORDERED: CIPROFLOXACIN 400MG/200ML 200 ML IV ONE (16:46)
[2025-02-19] MEDS ORDERED: PROPOFOL 10 MG/ML 20 ML IV ONE (19:13)
[2025-02-19] MEDS ORDERED: MIDAZOLAM HCL 2MG/2ML 2ml VIAL (1mg/ml) ONE (19:13)
[2025-02-19] MEDS ORDERED: fentaNYL CITRATE 100 MCG/2 ML VL ONE (19:13)
[2025-02-19] MEDS ORDERED: ONDANSETRON HCL 4 MG/2 ML VIAL ONE (19:13)
[2025-02-19] MEDS ORDERED: ROCURONIUM 10MG/ML 10ML VIAL IV ONE (19:13)
[2025-02-19] MEDS ORDERED: IOHEXOL 300 MG/ML 100ML BOTTLE IJ ONE (19:16)
[2025-02-19] MEDS ORDERED: LIDOCAINE 2% JELLY 11ml (GLYDO) ONE (19:19)
[2025-02-19] MEDS ORDERED: MORPHINE SULFATE 4 MG/ML SYR/VIAL IV PRN (20:00)
[2025-02-19] MEDS ORDERED: HYDROmorphone HCL 2 MG/ML VL/or syr IV PRN ×2 (20:00)
[2025-02-19] MEDS ORDERED: MORPHINE SULFATE INJ 2 MG/ml SYRG IV PRN (20:00)
[2025-02-19] MEDS ORDERED: METOCLOPRAMIDE HCL 5MG/ml INJ 2ml VIAL IV ONE (20:00)
[2025-02-19] MEDS ORDERED: KETOROLAC TROMETH 30 MG/ML 1ML VIAL IV ONE (20:00)
--- NOTE | 2025-02-19 20:05 | DVHNC2 ---
Procedure - OPERATIVE REPORT Pre-op. Diagnosis: Right hydronephrosis right flank pain right distal ureteral calculus, 4 mm Post-op. Diagnosis: bladder stone, 1 cm Operation: laser cystolitholapaxy right ureteroscopy and right retrograde pyelogram Anesthesia: Carol Indications: The patient presenting with symptomatic 4 mm right distal ureteral calculus reported on CT scan. She is having flank pain. The indications, risks, alternatives and benefits of ureteroscopy with laser lithotripsy were discussed with patient. All questions were encouraged and answered. She elected to proceed Details of Procedure: The patient was taken to the operating room and underwent general anesthesia. She was placed in dorsal lithotomy position with the area of the genitalia prepped and draped in usual sterile manner. Twenty-one [place] rigid cystoscope was used to inspect the urethra in the bladder. There was a large 1 cm bladder stone identified adjacent to the ureteric orifice. The stone was fragmented with 200 micron laser fiber and removed by irrigation. Stones were sent to laboratory for chemical analysis. Next, the right ureteric orifice is accessed with rigid ureteroscope under direct vision andfluoroscopy guidance. no stones were found in the distal, mid and proximal ureter. The ureteroscope was removed in entirety and the bladder was emptied. She was awakened and taken to recovery room in stable condition Specimens: bladder stone fragment Complications: none Findings: no distal ureteral calculus identified bladder stone was found, fragmented and removed GENE KYLE MD Feb 19, 2025 20:05
[2025-02-19] MEDS ORDERED: CLINDAMYCIN 600MG IV 50 ML IV ONE (20:09)
[2025-02-19] MEDS ORDERED: THROAT LOZENGES(CEPASTAT) MT PRN (22:00)
--- NOTE | 2025-02-19 22:42 | DVH ---
Date: 02/19/2025 06:54 PM Examination: XY KUB ABDOMEN SINGLE VIEW History: RIGHT LITHOTRIPSY Comparison: None TECHNIQUE: Frontal views of the abdomen was obtained. FINDINGS: 3 images of a right retrograde ureterogram, lithotripsy. Time 8.2 seconds Cumulative dose 1.83 mGy IMPRESSION: 1. Retrograde right retrograde ureterogram and lithotripsy
--- NOTE | 2025-02-19 22:56 | DVH ---
C-ARM FLUOROSCOPY: PROCEDURE: Right-sided lithotripsy FLUOROSCOPY TIME: 8.2 seconds DAP: 1.83 mgy FINDINGS: Spot intraoperative C arm radiographs demonstrating underwent. IMPRESSION: 1. Please refer to surgical report for detailed findings.
[2025-02-20 00:27] LABS: COVID19 ANTIGEN SOFIA FIA NEGATIVE (NEGATIVE); Rapid Influenza A Negative (Negative); Rapid Influenza B Negative (Negative)
[2025-02-20 01:00] VITALS: BP 110/63; PULSE 78; RESP 20; TEMP 98.6; O2SAT 95
[2025-02-20 05:00] VITALS: BP 96/61; PULSE 75; RESP 20; TEMP 98.3; O2SAT 95
[2025-02-20 05:59] LABS: Basophils # (auto) 0 10 ^3/uL (0-0.2); Basophils % (auto) 0.2 % (0.0-2.0); Eosinophils # (auto) 0 10 ^3/uL (0-0.8); Eosinophils % (auto) 0.2 % (0.0-7.0); Hematocrit 41.8 % (36.0-46.0); Hemoglobin 14.2 g/dL (12.2-16.2); Lymphocytes # (auto) 0.8 10 ^3/uL (0.4-5.4); Lymphocytes % (auto) 13.2 % (10.0-50.0); Mean Corpuscular Hemoglobin 28.6 pg (28.0-32.0); Mean Corpuscular Hgb Conc. 33.9 g/dL (32.0-36.0); Mean Corpuscular Volume 84.3 fL (80.0-100.0); Monocytes # (auto) 0.1 10 ^3/uL (0-1.3); Monocytes % (auto) 2.1 % (0.0-12.0); Neutrophils % (auto) 84.3 % (37.0-80.0); Nucleated Red Blood Cells % 0.1 %; Platelet Count (auto) 223 10^3/uL (140-450); Red Blood Cells 4.96 10^6/uL (4.0-5.20); Red Cell Distribution Width 15.3 % (11.8-14.3); White Blood Cell 5.9 10^3/uL (4.4-10.8)
[2025-02-20 06:29] LABS: Alanine Aminotransferase 19 U/L (7-40); Albumin 4.1 g/dL (3.2-4.8); Alkaline Phosphatase 71 U/L (46-116); Anion Gap 6 (5-15); Aspartate Aminotransferase 14 U/L (13-40); BUN/Creatinine Ratio 12.5 (10.0-20.0); Calcium 9.2 mg/dL (8.7-10.4); Carbon Dioxide 24 mmol/L (20-31); Potassium 4.6 mmol/L (3.5-5.1); Sodium 140 mmol/L (136-145); Total Protein 6.6 g/dL (5.7-8.2)
[2025-02-20 06:34] LABS: Bilirubin, Total 0.2 mg/dL (0.2-1.0); Blood Urea Nitrogen 9 mg/dL (9-23); Chloride 110 mmol/L (98-107); Glucose 135 mg/dL (74-106)
[2025-02-20 08:00] VITALS: PULSE 67; RESP 18; O2SAT 95
[2025-02-20 09:00] VITALS: BP 117/67; PULSE 67; RESP 18; TEMP 97.8; O2SAT 96
[2025-02-20] MEDS ORDERED: CEFD300C2 PO (09:00)
[2025-02-20 09:51] VITALS: BP 107/75; PULSE 67; RESP 18; TEMP 97.8; O2SAT 95
[2025-02-20] MEDS ORDERED: TAMS-35 PO (11:06)
--- NOTE | 2025-02-20 18:24 | DVHDSRES ---
Discharge Summary Date of Admission Resident Creating Document: MAGED GALE RESIDENT Feb 17, 2025 at 15:44 Date of Discharge: Feb 20, 2025 Admitting Diagnosis Abdominal pain Labs/Diagnostic Data: Laboratory Results Test 02/20/25 16:42 02/20/25 05:20 02/19/25 23:30 02/18/25 06:07 White Blood Count 5.9 10^3/uL (4.4-10.8) Red Blood Count 4.96 10^6/uL (4.0-5.20) Hemoglobin 14.2 g/dL (12.2-16.2) Hematocrit 41.8 % (36.0-46.0) Mean Corpuscular Volume 84.3 fL (80.0-100.0) Mean Corpuscular Hemoglobin 28.6 pg (28.0-32.0) Mean Corpuscular Hemoglobin Concent 33.9 g/dL (32.0-36.0) Red Cell Distribution Width 15.3 % (11.8-14.3) Platelet Count 223 10^3/uL (140-450) Mean Platelet Volume 9.2 fL (6.9-10.8) Neutrophils (%) (Auto) 84.3 % (37.0-80.0) Lymphocytes (%) (Auto) 13.2 % (10.0-50.0) Monocytes (%) (Auto) 2.1 % (0.0-12.0) Eosinophils (%) (Auto) 0.2 % (0.0-7.0) Basophils (%) (Auto) 0.2 % (0.0-2.0) Neutrophils # (Auto) 5.0 10 ^3/uL (1.6-8.6) Lymphocytes # (Auto) 0.8 10 ^3/uL (0.4-5.4) Monocytes # (Auto) 0.1 10 ^3/uL (0-1.3) Eosinophils # (Auto) 0 10 ^3/uL (0-0.8) Basophils # (Auto) 0 10 ^3/uL (0-0.2) Nucleated Red Blood Cells 0.1 % Sodium Level 140 mmol/L (136-145) Potassium Level 4.6 mmol/L (3.5-5.1) Chloride Level 110 mmol/L (98-107) Carbon Dioxide Level 24 mmol/L (20-31) Anion Gap 6 (5-15) Blood Urea Nitrogen 9 mg/dL (9-23) Creatinine 0.72 mg/dL (0.550-1.02) Glomerular Filtration Rate Calc 115 mL/min (>90) BUN/Creatinine Ratio 12.5 (10.0-20.0) Serum Glucose 135 mg/dL (74-106) Calcium Level 9.2 mg/dL (8.7-10.4) Total Bilirubin 0.2 mg/dL (0.2-1.0) Aspartate Amino Transferase (AST) 14 U/L (13-40) Alanine Aminotransferase (ALT) 19 U/L (7-40) Alkaline Phosphatase 71 U/L (46-116) Total Protein 6.6 g/dL (5.7-8.2) Albumin 4.1 g/dL (3.2-4.8) Influenza Type A Antigen Negative (Negative) Influenza Type B Antigen Negative (Negative) SARS-CoV-2 Antigen (Rapid) Negative (NEGATIVE) Hemoglobin A1c 4.9 % A1C (<5.7) Triglycerides Level 162 mg/dL (< 150) Cholesterol Level 154 mg/dL (< 200) LDL Cholesterol 103 mg/dL (< 100) HDL Cholesterol 27 mg/dL (40-59) Thyroid Stimulating Hormone (TSH) 1.88 uIU/mL (0.55-4.78) Test 02/17/25 12:33 02/17/25 12:18 Urine Color Light-orange (Yellow) Urine Clarity Ex.turbid (Clear) Urine pH 5.5 (5.0-9.0) Urine Specific [place] 1.040 (1.001-1.035) Urine Protein 1+ (Negative) Urine Ketones Negative (Negative) Urine Blood 1+ /uL (Negative) Urine Nitrite Negative (Negative) Urine Bilirubin Negative (Negative) Urine Urobilinogen Normal mg/dL (Negative) Urine Leukocyte Esterase 1+ /uL (Negative) Urine RBC 10 /hpf (0 - 4) Urine WBC Clumps Present /hpf (None Seen) Urine Microscopic WBC 62 /HPF (0-5) Urine Squamous Epithelial Cells Mod /hpf (<5) Urine Bacteria None seen /hpf (None Seen) Urine Mucus Moderate (None Seen) Urine Glucose Normal mg/dL (Normal) Urine Test Negative (Negative) Prothrombin Time 10.7 sec (9.3-11.8) Prothrombin Time INR 1.01 (0.9-1.15) Lipase 40 U/L (12-53) Other Laboratory Tests 02/20/25 05:20 Brief Hx & Hospital Course: Patient is 29-year-old female with no known medical history who came to the hospital with a chief complaint of right-sided abdominal pain mainly located in groin ratio radiating to right upper quadrant, without urinary frequency change or dysuria. Underwent CT abdomen pelvis which showed 4mm partially obstructive right kidney stone in the distal ureter with mild right hydro ureteronephrosis. Urology consultation was done. Patient underwent right-sided ureter laser lithotripsy. Continued treated with IV fluid, IV antibiotic and tamsulosin. Status post lithotripsy, patient's abdominal pain significantly improved. Patient was able to tolerate diet. Given patient is hemodynamically stable, abdominal pain resolving, Urology cleared patient for discharge home and follow up in outpatient setting. Therefore patient will be discharged home with oral tamsulosin, advised to follow with primary care physician and Urology in outpatient setting. Physical examination on discharge: General Appearance: Cooperative. Well developed. Well nourished. NAD Head Exam: Normal inspection Neck Exam: Normal inspection. Non-tender. Normal alignment Pulmonary/Respiratory: Chest non-tender. Clear bilateral breath sounds Cardiovascular/Chest: Regular rate and rhythm. No murmurs. No JVD. Peripheral Pulses: 2+ Radial (R). 2+ Radial (L). 2+ Pedal (R). 2+ Pedal (L) Abdominal Exam: Normal bowel sounds. Soft. Nontender. No hepatosplenomegaly. No masses Ankle Exam: Negative ankle edema Lower extremities: Negative lower extremity edema Neuro/Mental Status: A&O x4. Coherent Thoughts/Psych: Normal thought pattern. Appropriate mood and affect. Good judgement and insight Appearance: In no acute distress Skin Exam: Normal inspection. Normal color. Warm. Dry Discussed with Dr. Sanchez Consults/Reason for consult Urology for renal stone Operations or Procedures Right laser cystolitholapaxy with right ureteroscopy and right retrograde pyelogram Condition at Discharge: Stable Final Diagnosis/Problems List Right partial obstructive renal calculus with right hydronephrosis UTI Obesity BMI 31.4 Discharge Disposition: Home Discharge Instruct/Medications Diet: Regular Activity: No Restrictions, As Tolerated Follow Up/Referral: -follow up with pcp in 1 week and urology in 2 week Medications: -see prescription Discharge Statement: "Patient was advised to return to the ER or call 911 if any headaches, dizziness, shortness of breath, chest pain, abdominal pain, bleeding, fevers, or worsening of medical condition. Patient was counseled about treatment plan, medications, possible side effects, patientverbalized understanding. All questions were answered to the best of my ability. This discharge took greater then 30 minutes in planning, reviewing documentation, counseling the patient, and discussing with other team members." ASSESSMENT ASSESSMENT Assessment Right partial obstructive renal calculus with right hydronephrosis Addendum Addendum Addendum I was physically present for the [place] portions of the service provided to patient by THE RESIDENT. I have reviewed the documentation, discussed the case with resident and agree with the resident's documentation except as noted. Also the patient's clinical case was discussed with the patient's nurse. This medical document was created using an electronic medical record system with computerized dictation system. Although this document has been carefully reviewed, there might still be some phonetic and typographical errors. These areas are purely typographical due to imperfections of the software programs, and do not reflect any compromise in the patient's medical care. Late signature. Date of Service: Feb 20, 2025 Billing Provider: SHANNAN SANCHEZ MD Common Visit Codes: 16099-RFG/OBS DISCH DAY >30min MAGED GALE RESIDENT Feb 20, 2025 18:24 SHANNAN SANCHEZ MD February 22, 2025 05:15
== END 2025-02-20 11:39 | disposition home or self-care (01) | DRG 463 ==
LOC: ER 11:56 → OVERFLOW 15:44 → EAST 17:22
PROVIDERS: ADMIT Internal Medicine; ATTEND Internal Medicine
PROC: BT1D1ZZ Fluoroscopy of Right Kidney, Ureter and Bladder using Low Osmolar Contrast (ICD-10-PCS; 2025-02-19)
PROC: 0TCB8ZZ Extirpation of Matter from Bladder, Via Natural or Artificial Opening Endoscopic (ICD-10-PCS; principal; 2025-02-19 19:29)
DX: N13.6 Pyonephrosis (principal); E66.9 Obesity, unspecified; K80.20 Calculus of gallbladder without cholecystitis without obstruction; N21.0 Calculus in bladder; Z20.822 Contact with and (suspected) exposure to COVID-19; Z68.31 Body mass index [BMI] 31.0-31.9, adult; Z79.899 Other long term (current) drug therapy; Z79.1 Long term (current) use of non-steroidal anti-inflammatories (NSAID)
CPT/HCPCS: 36415; 74018; 74176; 76000; 80053; 80061; 81001; 81025; 82360; 83036; 83690; 84443; 85025; 85610; 87086; 87426; 87804; 96361; 96374; 99291; G0378; J2250; J2405; J2704; J3490